=== PATIENT | female | born 1965 | race Hispanic/Latino ===

== ENCOUNTER 2018-01-19 09:46 | Outpatient (CLI) | payer OTHER, MEDICARE ==
--- NOTE | 2018-01-19 10:34 | XRay Report ---
XRAY CHEST TWO VIEWS: 01/19/18 09:46:00 CLINICAL: Cough. COMPARISON: 10/27/14 FINDINGS: Normal heart and pulmonary vasculature. The lungs are normally expanded and clear.The bones and soft tissues are unremarkable. IMPRESSION: Normal chest.No pneumonia.
== END 2018-01-19 09:47 | disposition home or self-care (01) ==
LOC: SPVIMAG 09:46
PROVIDERS: ATTEND Internal Medicine
DX: J40 Bronchitis, not specified as acute or chronic (principal)
CPT/HCPCS: 71046